=== PATIENT | male | born 1940 | race Caucasian/White ===

== ENCOUNTER 2019-04-12 21:22 | Emergency (ER) | payer OTHER ==
[~2019-04-12] VITALS: Ht 182.9 cm; Wt 87.1 kg
[2019-04-12] MEDS ORDERED: ZOCOR20 MG (21:43)
[2019-04-12] MEDS ORDERED: FOLIC ACID0.4 MG (21:43)
[2019-04-12] MEDS ORDERED: NORVASC10 MG (21:43)
[2019-04-12] MEDS ORDERED: FINASTERIDE5 MG (21:43)
[2019-04-12] MEDS ORDERED: ARICEPT10 MG (21:44)
[2019-04-12] MEDS ORDERED: TRINTELLIX10 MG (21:44)
[2019-04-13] MEDS ORDERED: CEFUROXIME500 MG PO (02:18)
== END 2019-04-13 02:49 | disposition home or self-care (01) ==
LOC: ER 21:22
DX: N39.0 Urinary tract infection, site not specified (principal); B96.29 Other Escherichia coli [E. coli] as the cause of diseases classified elsewhere

== ENCOUNTER 2020-09-10 21:45 | Emergency (ER) | payer OTHER ==
[~2020-09-10] VITALS: Ht 182.9 cm; Wt 79.4 kg
[~2020-09-10 21:45] MED LIST: ARICEPT10 MG; CEFUROXIME500 MG PO; FINASTERIDE5 MG; FOLIC ACID0.4 MG; NORVASC10 MG; TRINTELLIX10 MG; ZOCOR20 MG
[2020-09-11] MEDS ORDERED: INTESTINEX680 M1 PO (15:22)
[2020-09-11] MEDS ORDERED: MACRODANTIN100 M1 PO (15:22)
== END 2020-09-11 16:18 | disposition home or self-care (01) ==
LOC: ER 21:45 → CPU-OBS 22:23 → ER 09-11 16:18
DX: R40.4 Transient alteration of awareness (principal); E87.6 Hypokalemia; N39.0 Urinary tract infection, site not specified; B96.29 Other Escherichia coli [E. coli] as the cause of diseases classified elsewhere; Z03.818 Encounter for observation for suspected exposure to other biological agents ruled out; R50.9 Fever, unspecified